=== PATIENT | male | born 2000 | race Hispanic/Latino ===

== ENCOUNTER 2021-04-14 01:45 | Inpatient (IN) | payer SELFPAY ==
[2021-04-14] MEDS ORDERED: Morphine 4 MG/ML VIAL ONE (02:27)
[2021-04-14 02:44] LABS: Hemoglobin 13.3 g/dL (14.0-18.0); Mean Corpuscular HGB CONC 33.7 g/dL (32.0-36.0); Mean Corpuscular Hemoglobin 30.8 pg (25.0-35.0); Mean Corpuscular Volume 91.3 fL (78.0-98.0); Mean Platelet Volume 8.3 fL (7.4-10.4); Platelet Count 284 thou/uL (130-400); RBC Distribution Width 11.9 % (11.5-14.5); Red Blood Cell (RBC) Count 4.31 mill/uL (4.00-5.20)
[2021-04-14 02:51] LABS: INR-International Normal Ratio 1.1; PTT 29.8 sec (22.9-36.1); Prothrombin Time 14.1 sec (12.0-14.7)
[2021-04-14 02:57] LABS: Lactic Acid 2.5 mmol/L (0.5-2.2)
[2021-04-14 03:04] LABS: ALT (SGPT) 20 U/L (8-55); AST (SGOT) 36 U/L (5-34); Albumin 3.9 g/dL (3.5-5.0); Alkaline Phosphatase 91 U/L (50-130); Anion Gap 16 mmol/L (10-20); BUN (Urea Nitrogen) 7 mg/dL (8.9-20.6); Bilirubin, Total 0.7 mg/dL (0.2-1.2); Calc. Creatinine Clearance 0 mL/min (70-130); Calcium 8.6 mg/dL (7.8-10.44); Carbon Dioxide 18 mmol/L (22-29); Chloride 104 mmol/L (98-107); Globulin 3.1 g/dL (2.4-3.5); Glucose 126 mg/dL (70-105); Magnesium 1.4 mg/dL (1.7-2.2); Phosphorus 3.2 mg/dL (2.3-4.7); Potassium 3.9 mmol/L (3.5-5.1); Sodium 134 mmol/L (136-145)
[2021-04-14] MEDS ORDERED: Ondansetron PF 4 MG/2 ML Vial IVP PRN (03:06)
[2021-04-14] MEDS ORDERED: Dextrose 50% Abboject 50 ML SYRINGE SLOW IVP PRN (03:06)
[2021-04-14] MEDS ORDERED: Dextrose 5% in Water 1,000 ML IV PRN (03:06)
[2021-04-14] MEDS ORDERED: hydrALAZINE 20 MG/ML VIAL SLOW IVP PRN (03:06)
[2021-04-14] MEDS ORDERED: traMADol HCl 50 MG TAB PO PRN (03:09)
[2021-04-14 03:59] LABS: SARS-CoV-2 NAA Rapid Test DETECTED (NotDetected)
[2021-04-14] MEDS: ceFAZolin 2 GM/Dextrose 50 ML 2 GM in Premix Bag 1 BAG IVPB SCH ×3 (04:41→21:31)
[2021-04-14] MEDS: Magnesium 2 GM/50 ML 2 GM in Premix Bag 1 BAG IVPB SCH ×2 (04:53→06:28)
[2021-04-14] MEDS: Sodium Chloride 0.9% 1,000 ML IV SCH ×4 (04:53→23:44)
[2021-04-14] MEDS: Acetaminophen 500 MG TAB PO SCH ×4 (04:54→23:45)
[2021-04-14] MEDS: Ibuprofen 200 MG TAB PO SCH ×2 (04:59→14:14)
[2021-04-14] MEDS: Morphine 4 MG/ML VIAL SLOW IVP PRN ×4 (04:59→18:07)
[2021-04-14] MEDS: traMADol HCl 50 MG TAB PO PRN (06:45)
[2021-04-14 07:39] VITALS: BMI 33.4
[2021-04-14] MEDS ORDERED: FLU VACC QS2021-22(6MOS UP)/PF 60 MCG/0.5 ML SYRINGE IM ONE (09:00)
[2021-04-14] MEDS: Polyethylene Glycol 3350 17 GM Packet PO SCH (09:00)
[2021-04-14] MEDS: Senokot S 8.6-50 MG TAB PO SCH ×2 (09:00→21:31)
[2021-04-14] MEDS: Famotidine 20 MG TAB PO SCH ×2 (09:00→21:31)
[2021-04-14] MEDS ORDERED: Fentanyl 100 MCG/2 ML VIAL ONE ×4 (12:58→16:43)
[2021-04-14] MEDS ORDERED: Dexmedetomidine 200 MCG/2 ML VIAL ONE (12:59)
[2021-04-14] MEDS ORDERED: Neomycin-Polymyxin 1 ML AMP ONE (13:01)
[2021-04-14] MEDS ORDERED: ceFAZolin 2 GM/DEX 5% 100 ML BAG ONE (13:15)
[2021-04-14] MEDS ORDERED: Glycopyrrolate 0.2 MG/ML 5 ML SYRINGE ONE (13:36)
[2021-04-14] MEDS ORDERED: Dexamethasone 20 MG/5 ML VIAL ONE (13:36)
[2021-04-14] MEDS ORDERED: Rocuronium Bromide 10 MG/ML (10ML VIAL) ONE (13:36)
[2021-04-14] MEDS ORDERED: Lidocaine 1% PF 5 ML VIAL ONE (13:36)
[2021-04-14] MEDS ORDERED: Ondansetron PF 4 MG/2 ML Vial ONE (13:36)
[2021-04-14] MEDS ORDERED: PROPOFOL 200 MG/20 ML VIAL ONE (13:36)
[2021-04-14] MEDS ORDERED: Tranexamic Acid 1,000 MG/10 ML VIAL ONE ×2 (14:04→15:46)
[2021-04-14 15:59] LABS: Hemoglobin 11.4 g/dL (14.0-18.0)
[2021-04-14] MEDS ORDERED: HYDROcodone/Acetaminophen 10/325 mg Tablet PO PRN ×2 (16:22)
[2021-04-14] MEDS ORDERED: Promethazine HCl 25 MG/ML VIAL IM PRN (16:23)
[2021-04-14] MEDS ORDERED: Meperidine HCl/PF 25 MG/ML VIAL SLOW IVP PRN (16:23)
[2021-04-14] MEDS ORDERED: Ondansetron HCl/PF 4 MG/2 ML Vial IVP PRN (16:23)
[2021-04-14] MEDS ORDERED: Promethazine HCl 25 MG/ML VIAL IVPB PRN (16:23)
[2021-04-14] MEDS ORDERED: Promethazine HCl 25 MG/ML VIAL ONE (16:27)
[2021-04-14] MEDS ORDERED: Communication Order-Pharmacy FS SCH (16:30)
[2021-04-14] MEDS: Ketorolac Tromethamine 30 MG/ML VIAL IVP SCH ×2 (18:22→23:54)
[2021-04-14] MEDS ORDERED: TETANUS AND DIPHTHERIA TOX/PF 0.5 ML DISP.SYRIN IM SCH (20:00)
[2021-04-14] MEDS ORDERED: TETANUS, DIPHTHERIA TOX,ADULT (TDVAX) 0.5 ML VIAL IM ONE (21:00)
[2021-04-14] MEDS: Aspirin 81 mg Enteric Coated Tablet PO SCH (21:31)
[2021-04-14 23:08] LABS: #Lymphocytes 1.2 thou/uL (1.20-3.40); #Monocytes 1.3 thou/uL (0.11-0.59); #Neutrophils 22.6 thou/uL (1.40-6.50); %Eosinophils 0.2 % (0.0-10.0); %Lymphocytes 4.8 % (28.0-48.0); %Monocytes 5.3 % (0.0-4.0); %Neutrophils 89.7 % (31.0-61.0); Hemoglobin 9.8 g/dL (14.0-18.0); Mean Corpuscular HGB CONC 32.9 g/dL (32.0-36.0); Mean Corpuscular Hemoglobin 29.9 pg (25.0-35.0); Mean Corpuscular Volume 90.8 fL (78.0-98.0); Mean Platelet Volume 8.5 fL (7.4-10.4); Platelet Count 320 thou/uL (130-400); RBC Distribution Width 11.9 % (11.5-14.5); Red Blood Cell (RBC) Count 3.28 mill/uL (4.00-5.20); White Blood Cell (WBC) Count 25.1 thou/uL (4.8-10.8)
[2021-04-14 23:22] LABS: Lactic Acid 3.1 mmol/L (0.5-2.2)
[2021-04-14 23:27] LABS: Anion Gap 17 mmol/L (10-20); BUN (Urea Nitrogen) 11 mg/dL (8.9-20.6); Calc. Creatinine Clearance 181 mL/min (70-130); Calcium 8.5 mg/dL (7.8-10.44); Carbon Dioxide 21 mmol/L (22-29); Chloride 103 mmol/L (98-107); Glucose 157 mg/dL (70-105); Magnesium 1.7 mg/dL (1.7-2.2); Phosphorus 3.1 mg/dL (2.3-4.7); Potassium 4.3 mmol/L (3.5-5.1); Sodium 137 mmol/L (136-145)
[2021-04-14] MEDS ORDERED: Magnesium 2 GM/50 ML 2 GM in Premix Bag 1 BAG IVPB SCH (23:59)
[2021-04-15] MEDS ORDERED: Sodium Phosphate 30 MMOL in Sodium Chloride 0.9% 250 ML 250 ML IVPB SCH (00:30)
[2021-04-15] MEDS ORDERED: Sodium Chloride 0.9% 1,000 ML IV SCH ×2 (02:15→09:30)
[2021-04-15] MEDS: ceFAZolin 2 GM/Dextrose 50 ML 2 GM in Premix Bag 1 BAG IVPB SCH ×3 (05:20→21:27)
[2021-04-15] MEDS: Acetaminophen 500 MG TAB PO SCH ×4 (05:20→23:12)
[2021-04-15 06:41] LABS: #Lymphocytes 2.1 thou/uL (1.20-3.40); #Monocytes 2.1 thou/uL (0.11-0.59); #Neutrophils 16.1 thou/uL (1.40-6.50); %Basophils 0.1 % (0.0-1.0); %Eosinophils 0.2 % (0.0-10.0); %Lymphocytes 10.3 % (28.0-48.0); %Monocytes 10.2 % (0.0-4.0); %Neutrophils 79.3 % (31.0-61.0); Mean Corpuscular HGB CONC 34.3 g/dL (32.0-36.0); Mean Corpuscular Volume 90.5 fL (78.0-98.0); Mean Platelet Volume 8.8 fL (7.4-10.4); Platelet Count 254 thou/uL (130-400); RBC Distribution Width 11.8 % (11.5-14.5); Red Blood Cell (RBC) Count 2.59 mill/uL (4.00-5.20); White Blood Cell (WBC) Count 20.3 thou/uL (4.8-10.8)
[2021-04-15 07:12] LABS: Anion Gap 13 mmol/L (10-20); BUN (Urea Nitrogen) 9 mg/dL (8.9-20.6); Calc. Creatinine Clearance 213 mL/min (70-130); Calcium 8.1 mg/dL (7.8-10.44); Carbon Dioxide 23 mmol/L (22-29); Chloride 104 mmol/L (98-107); Glucose 120 mg/dL (70-105); Phosphorus 3.8 mg/dL (2.3-4.7); Potassium 3.9 mmol/L (3.5-5.1); Sodium 136 mmol/L (136-145)
[2021-04-15] MEDS: Senokot S 8.6-50 MG TAB PO SCH ×2 (08:28→21:26)
[2021-04-15] MEDS: Aspirin 81 mg Enteric Coated Tablet PO SCH ×2 (08:28→21:26)
[2021-04-15] MEDS: Famotidine 20 MG TAB PO SCH ×2 (08:28→21:26)
[2021-04-15] MEDS: Polyethylene Glycol 3350 17 GM Packet PO SCH (08:28)
[2021-04-15] MEDS: traMADol HCl 50 MG TAB PO PRN ×3 (08:32→23:12)
[2021-04-15] MEDS: Sodium Chloride 0.9% 1,000 ML IV SCH ×2 (17:43→21:28)
[2021-04-15] MEDS: Cyclobenzaprine 10 MG TAB PO PRN (21:26)
[2021-04-15] MEDS: Ibuprofen 200 MG TAB PO SCH (21:27)
[2021-04-15 22:03] LABS: Hemoglobin 7.4 g/dL (14.0-18.0)
[2021-04-16] MEDS: ceFAZolin 2 GM/Dextrose 50 ML 2 GM in Premix Bag 1 BAG IVPB SCH (05:36)
[2021-04-16] MEDS: Ibuprofen 200 MG TAB PO SCH (05:37)
[2021-04-16] MEDS: Acetaminophen 500 MG TAB PO SCH ×4 (05:37→23:39)
[2021-04-16 06:42] LABS: #Eosinphils 0.1 thou/uL (0.0-0.7); #Lymphocytes 4.2 thou/uL (1.20-3.40); #Monocytes 1.4 thou/uL (0.11-0.59); #Neutrophils 9.1 thou/uL (1.40-6.50); %Basophils 0.3 % (0.0-1.0); %Eosinophils 0.7 % (0.0-10.0); %Lymphocytes 28.4 % (28.0-48.0); %Monocytes 9.4 % (0.0-4.0); %Neutrophils 61.2 % (31.0-61.0); Hemoglobin 7.1 g/dL (14.0-18.0); Mean Corpuscular HGB CONC 33.8 g/dL (32.0-36.0); Mean Corpuscular Volume 91.7 fL (78.0-98.0); Mean Platelet Volume 8.5 fL (7.4-10.4); Platelet Count 202 thou/uL (130-400); RBC Distribution Width 11.9 % (11.5-14.5); Red Blood Cell (RBC) Count 2.28 mill/uL (4.00-5.20); White Blood Cell (WBC) Count 14.9 thou/uL (4.8-10.8)
[2021-04-16 06:58] LABS: Lactic Acid 0.9 mmol/L (0.5-2.2)
[2021-04-16 07:03] LABS: Anion Gap 12 mmol/L (10-20); BUN (Urea Nitrogen) 7 mg/dL (8.9-20.6); Calc. Creatinine Clearance 241 mL/min (70-130); Carbon Dioxide 25 mmol/L (22-29); Chloride 106 mmol/L (98-107); Glucose 90 mg/dL (70-105); Magnesium 1.8 mg/dL (1.7-2.2); Phosphorus 2.2 mg/dL (2.3-4.7); Potassium 3.5 mmol/L (3.5-5.1); Sodium 139 mmol/L (136-145)
[2021-04-16] MEDS: Aspirin 81 mg Enteric Coated Tablet PO SCH (08:34)
[2021-04-16] MEDS: traMADol HCl 50 MG TAB PO PRN ×2 (08:34→21:08)
[2021-04-16] MEDS: Senokot S 8.6-50 MG TAB PO SCH ×2 (08:34→21:08)
[2021-04-16] MEDS: Famotidine 20 MG TAB PO SCH ×2 (08:35→21:07)
[2021-04-16] MEDS: Polyethylene Glycol 3350 17 GM Packet PO SCH (08:35)
[2021-04-16] MEDS ORDERED: Potassium Phosphate 30 MMOL in Sodium Chloride 0.9% 250 ML 250 ML IVPB SCH (17:00)
[2021-04-16] MEDS ORDERED: Magnesium Sulfate 3 GM in Sodium Chloride 0.9% 100 ML IV SCH (17:00)
[2021-04-17] MEDS: Cyclobenzaprine 10 MG TAB PO PRN (01:31)
[2021-04-17 05:26] LABS: #Basophils 0.1 thou/uL (0.0-0.2); #Eosinphils 0.2 thou/uL (0.0-0.7); #Lymphocytes 3.8 thou/uL (1.20-3.40); #Neutrophils 8.5 thou/uL (1.40-6.50); %Basophils 0.4 % (0.0-1.0); %Eosinophils 1.2 % (0.0-10.0); %Lymphocytes 28.3 % (28.0-48.0); %Monocytes 7.2 % (0.0-4.0); %Neutrophils 62.9 % (31.0-61.0); Hemoglobin 7.8 g/dL (14.0-18.0); Mean Corpuscular HGB CONC 34.1 g/dL (32.0-36.0); Mean Corpuscular Volume 90.7 fL (78.0-98.0); Mean Platelet Volume 8.3 fL (7.4-10.4); Platelet Count 246 thou/uL (130-400); RBC Distribution Width 12.4 % (11.5-14.5); White Blood Cell (WBC) Count 13.5 thou/uL (4.8-10.8)
[2021-04-17] MEDS: Acetaminophen 500 MG TAB PO SCH ×2 (05:30→15:22)
[2021-04-17] MEDS: traMADol HCl 50 MG TAB PO PRN ×2 (05:35→15:23)
[2021-04-17] MEDS: Polyethylene Glycol 3350 17 GM Packet PO SCH (08:01)
[2021-04-17] MEDS: Famotidine 20 MG TAB PO SCH (08:01)
[2021-04-17] MEDS: Senokot S 8.6-50 MG TAB PO SCH (08:01)
[2021-04-17] MEDS ORDERED: Ferrous Sulfate 325 MG TAB PO SCH (09:00)
[2021-04-17] MEDS ORDERED: Ascorbic Acid 500 mg Chewable Tablet PO SCH (09:00)
[2021-04-17 11:34] VITALS: BP 143/80; TEMP 98.4
[2021-04-17] MEDS ORDERED: Aspirin 81 mg Enteric Coated Tablet PO SCH (21:00)
== END 2021-04-17 16:00 | disposition home or self-care (01) | DRG 480 ==
LOC: ERS 01:45 → SJJU 03:06
PROVIDERS: ADMIT Surgery; ATTEND Surgery
PROC: 0QH836Z Insertion of Intramedullary Internal Fixation Device into Right Femoral Shaft, Percutaneous Approach (ICD-10-PCS; principal; 2021-04-14)
PROC: 8E0ZXY6 Isolation (ICD-10-PCS; 2021-04-14)
PROC: 30233N1 Transfusion of Nonautologous Red Blood Cells into Peripheral Vein, Percutaneous Approach (ICD-10-PCS; 2021-04-15)
DX: S72.351A Displaced comminuted fracture of shaft of right femur, initial encounter for closed fracture (principal); U07.1 COVID-19; D62 Acute posthemorrhagic anemia; E87.2 Acidosis; E83.42 Hypomagnesemia; W32.0XXA Accidental handgun discharge, initial encounter
CPT/HCPCS: 36415; 36430; 76000; 80048; 80053; 83605; 83735; 84100; 85025; 85027; 85610; 85730; 86850; 86900; 86901; 90714; 93005; 93010; C1713; G0390; J0690; J1100; J1885; J2270; J2405; J2550; J2704; J3010; J3475; J3490; J7050; P9016; U0002